=== PATIENT | female | born 1965 | race Caucasian/White ===

== ENCOUNTER 2016-11-22 15:17 | Emergency (ER) | payer MEDICAID ==
[~2016-11-22] VITALS: Ht 157.5 cm; Wt 70.0 kg
[~2016-11-22 15:17] MED LIST: NO RX MEDS
[2016-11-22 15:20] VITALS: Ht 157.5 cm; Wt 70.0 kg
[2016-11-22] MEDS ORDERED: HYDROCODONE/APAP (5/325) TAB PO STA (18:28)
[2016-11-22] MEDS ORDERED: ONDANSETRON (ODT) 4 MG TAB ODT STA (18:28)
--- NOTE | 2016-11-22 18:59 | ERD ---
ER Documentation Chief Complaint Date/Time DATE: 11/22/16 TIME: 18:56 Chief Complaint RT FLANK PAIN HPI 51-year-old female presents emergency department complaining of right lower quadrant abdominal pain since this morning. Patient rates the pain 10 out of 10. She denies any fever, nausea, vomiting, diarrhea, constipation. Denies any symptoms of dysuria. Patient states that about 10 days prior to being seen her primary care physician told her that she may have diverticulitis and have given her prescription for clarithromycin and amoxicillin. Patient states that she took her antibiotics today. She did not take anything for pain ROS All systems reviewed and are negative except as per history of present illness. Medications Home Meds Active Scripts Acetaminophen* (Tylenol*) 325 Mg Tablet, 2 TAB PO Q6 Y for PAIN AND OR ELEVATED TEMP, #20 TAB Prov:JESSICA FRASER PA-C 11/22/16 Reported Medications [None] No Conflict Check 08/29/12 [No Rx Meds] No Conflict Check 09/15/10 Allergies Allergies: Coded Allergies: No Known Allergies (Verified Allergy, Mild, 08/29/12) PMhx/Soc History of Surgery: No Anesthesia Reaction: No Hx Neurological Disorder: No Hx Respiratory Disorders: No Hx Cardiac Disorders: No Hx Psychiatric Problems: No Hx Miscellaneous Medical Probl: No Hx Alcohol Use: No Hx Substance Use: No Hx Tobacco Use: No Physical Exam Vitals Vital Signs Date Time Temp Pulse Resp B/P Pulse Ox O2 Delivery O2 Flow Rate FiO2 11/22/16 15:20 99.7 89 16 122/58 98 Physical Exam GENERAL: well-developed/well-nourished, in no apparent distress, non-toxic appearing HENT: NC/AT, moist mucous membranes EYES: Conjunctiva normal NECK: Supple, no lymphadenopathy PULM: CTA bilaterally, no rales, rhonchi, or wheezing heard CV: Normal S1S2, RRR, good capillary refill GI: Soft, non-distended, tender to palpation right lower quadrant and upper quadrant Normal bowel sounds, no masses or organomegaly felt on exam No gross peritonitis, no bruits Negative Rovsing, negative Bermudez, negative McBurney's point, Negative CVAT BACK: No masses EXT: No clubbing, cyanosis, or edema NEURO: Alert and Orientated SKIN: Intact, normal turgor PSYCH: Normal mood and mentation Result Diagram: 11/22/16 1845 11/22/16 1845 Results 24 hrs Laboratory Tests Test 11/22/16 18:45 White Blood Count 8.310^3/ul Red Blood Count 4.5010^6/ul Hemoglobin 14.0g/dl Hematocrit 40.5% Mean Corpuscular Volume 90.0fl Mean Corpuscular Hemoglobin 31.1pg Mean Corpuscular Hemoglobin Concent 34.6g/dl Red Cell Distribution Width 12.7% Platelet Count 99155^3/UL Mean Platelet Volume 10.1fl Neutrophils % 60.5% Lymphocytes % 26.4% Monocytes % 10.4% Eosinophils % 1.8% Basophils % 0.7% Nucleated Red Blood Cells % 0.0/100WBC Neutrophils # (Manual) 5.010^3/ul Lymphocytes # 2.210^3/ul Monocytes # 0.910^3/ul Eosinophils # 0.210^3/ul Basophils # 0.110^3/ul Nucleated Red Blood Cells # 0.010^3/ul Urine Color YELLOW Urine Clarity CLEAR Urine pH 5.0 Urine Specific [place] 1.025 Urine Ketones NEGATIVEmg/dL Urine Nitrite NEGATIVEmg/dL Urine Bilirubin NEGATIVEmg/dL Urine Urobilinogen NEGATIVEmg/dL Urine Leukocyte Esterase NEGATIVELeu/ul Urine Hemoglobin NEGATIVEmg/dL Urine Glucose NEGATIVEmg/dL Urine Total Protein NEGATIVEmg/dl Sodium Level 146mmol/L Potassium Level 4.1mmol/L Chloride Level 103mmol/L Carbon Dioxide Level 26mmol/L Anion Gap 21 Blood Urea Nitrogen 11mg/dl Creatinine 0.62mg/dl Glucose Level 91mg/dl Calcium Level 9.7mg/dl Total Bilirubin 0.5mg/dl Direct Bilirubin 0.00mg/dl Indirect Bilirubin 0.5mg/dl Aspartate Amino Transf (AST/SGOT) 27IU/L Alanine Aminotransferase (ALT/SGPT) 35IU/L Alkaline Phosphatase 67IU/L Total Protein 9.1g/dl Albumin 4.6g/dl Globulin 4.50g/dl Albumin/Globulin Ratio 1.02 Lipase 75U/L Current Medications Medications (Trade) Dose Ordered Sig/Larry Route PRN Reason Start Time Stop Time Status Last Admin Dose Admin Acetaminophen/ Hydrocodone Bitart ([place] (5/325)) 2 tab ONCE STAT PO 11/22/16 18:28 11/22/16 18:30 DC 11/22/16 18:56 Ondansetron HCl (Zofran Odt) 4 mg ONCE STAT ODT 11/22/16 18:28 11/22/16 18:30 DC 11/22/16 18:56 Procedures/MDM 51-year-old female presents emergency department complaining of right lower quadrant abdominal pain since this morning. Patient states that about 10 days prior to being seen her primary care physician told her that she may have diverticulitis and have given her prescription for clarithromycin and amoxicillin. Patient states that she took her antibiotics today. Blood work was drawn, Lab work was drawn. CBC did not show any evidence of leukocytosis or anemia. CMP did not show any evidence of renal, liver, or electrolyte abnormalities. Lipase was normal. UA did not show any evidence of hemoglobin or urinary tract infection. CT abd and pelvis without contrast: Likely trace free fluid in the right posterior mid to lower pelvis which may be physiologic. Otherwise no acute abnormality seen. The extreme superior dome of the liver and the extreme superior lateral segment of the left lobe of liver in left upper quadrant of the abdomen is not included in the imaging volume. Please see above. Gallbladder ultrasound did not show any cholelithiasis I have reassessed patient and she feels a lot better. I have discussed with her to follow-up with her primary care physician tomorrow. Discussed return to the ER for any worsening symptoms patient understands and agrees with plan Departure Diagnosis: Primary Impression: Abdominal pain Condition: Stable JESSICA FRASER PA-C Nov 22, 2016 18:59
[2016-11-22 19:17] LABS: BASOPHIL # 0.1 10^3/ul (0.0-0.1); BASOPHILS % 0.7 % (0.0-2.0); EOSINOPHILS # 0.2 10^3/ul (0.0-0.5); EOSINOPHILS % 1.8 % (0.0-7.0); HEMATOCRIT 40.5 % (37.0-47.0); LYMPHOCYTES # 2.2 10^3/ul (0.8-2.9); LYMPHOCYTES % 26.4 % (15.0-51.0); MEAN CORPUSCULAR HEMOGLOBIN 31.1 pg (29.0-33.0); MEAN CORPUSCULAR HGB CONC 34.6 g/dl (32.0-37.0); MEAN PLATELET VOLUME 10.1 fl (7.4-10.4); MONOCYTE # 0.9 10^3/ul (0.3-0.9); MONOCYTES % 10.4 % (0.0-11.0); NEUTROPHILS % 60.5 % (39.0-77.0); PLATELET COUNT 293 10^3/UL (140-415); RED CELL DISTRIBUTION WIDTH 12.7 % (11.5-14.5); WHITE BLOOD COUNT 8.3 10^3/ul (4.8-10.8)
[2016-11-22 19:29] LABS: ADD UMIC NO; UR ASCORBIC ACID NEGATIVE (NEGATIVE); UR BILIRUBIN (Dip) NEGATIVE (NEGATIVE); UR BLOOD (Dip) NEGATIVE (NEGATIVE); UR CLARITY CLEAR (CLEAR); UR COLOR YELLOW (YELLOW); UR GLUCOSE (Dip) NEGATIVE (NEGATIVE); UR KETONES (Dip) NEGATIVE (NEGATIVE); UR LEUKOCYTE ESTERASE (Dip) NEGATIVE Leu/ul (NEGATIVE); UR NITRITE (Dip) NEGATIVE (NEGATIVE); UR SPECIFIC GRAVITY (Dip) 1.025 (1.003-1.030); UR TOTAL PROTEIN (Dip) NEGATIVE (NEGATIVE); UR UROBILINOGEN (Dip) NEGATIVE (NEGATIVE)
[2016-11-22 19:44] LABS: ALBUMIN 4.6 g/dl (3.3-4.9); ALBUMIN/GLOBULIN RATIO 1.02; BILIRUBIN,INDIRECT 0.5 mg/dl (0-1.1); BILIRUBIN,TOTAL 0.5 mg/dl (0.2-1.3); CALCIUM 9.7 mg/dl (8.4-10.2); CREATININE 0.62 mg/dl (0.44-1.00); POTASSIUM 4.1 mmol/L (3.5-5.1); TOTAL PROTEIN 9.1 g/dl (6.1-8.1)
--- NOTE | 2016-11-22 19:58 | RADRPT ---
PROCEDURE: US Abdomen. CLINICAL INDICATION: Abdominal Pain TECHNIQUE: Multiple real-time images were acquired of the patient's abdomen and retroperitoneum ut ilizing a high resolution transducer. COMPARISON: None FINDINGS: Visualized portions of the pancreatic head and proximal body are unremarkable. The liver is normal in size and contour without evidence of intrapelvic biliary dilatation. Flow in the main portal vein is directed towards the liver. The gallbladder is normal without evidence of cholelithiasis, pericholecystic fluid or gallbladder w all thickening. The technologist reports a negative sonographic Bermudez's sign. The common bile du ct measures 3.0 mm in maximal dimension. No free fluid is identified. The right kidney is unremarkable without evidence of hydronephrosis or mass. The right kidney measu res 10.4 cm in length. IMPRESSION: Unremarkable abdominal ultrasound. RPTAT:AAJJ Physician Fabiana Date Time Electronically viewed and signed by Physician Fabiana on 11/22/2016 19:58 IVAN/
--- NOTE | 2016-11-22 21:55 | RADRPT ---
PROCEDURE: CT Abdomen and Pelvis without contrast. CLINICAL INDICATION: Abdominal pain TECHNIQUE: CT scan of the abdomen and pelvis without contrast was performed on a multidetector hig h-resolution CT scanner. The patient was scanned without intravenous contrast. Coronal and sagittal reformatted images were obtained from the axial source images. Images were reviewed on a high-resol [employer] PACS workstation. The total exam CTDI equals 9.22 mGy and the total exam DLP equals 453.59 mGy -cm. One or more the following dose reduction techniques were utilized: Automated exposure control, adjus tment of the mA and / or kV according to patient's size, or use of iterative reconstruction techniqu e. COMPARISON: Abdominal ultrasound of 11/22/2016 FINDINGS: The lung bases are clear. The extreme superior dome of the liver and the extreme superior lateral s egment of the left lobe of liver in left upper quadrant of the abdomen is not included in the imagin g volume. No abnormality of the visualized liver is seen. No abnormality seen in the gallbladder. A very small umbilical hernia containing fat only. No abnormality seen in the spleen, adrenals or kidneys. The stomach is not distended. No biliary dilatation is seen. There is mild fatty infiltr ation of the pancreas. No abdominal aortic aneurysm is seen. No abnormality seen in the bladder. No definite abnormality of the uterus or adnexal regions is seen on CT. Diverticula in ascending c olon. There is no specific evidence of acute diverticulitis seen. There is an unremarkable appendi x. No dilated small bowel loops are seen. There are is appearance of likely trace free fluid in th e right posterior mid to lower pelvis. No enlarged lymph nodes are seen in the abdomen or pelvis. No pneumoperitoneum is seen. Small scattered likely bone islands. Minimal osteoarthrosis at hips. Mild degenerative changes at sacroiliac joints. Degenerative changes in lumbar spine. IMPRESSION: Likely trace free fluid in the right posterior mid to lower pelvis which may be physiologic. Otherwi se no acute abnormality seen. The extreme superior dome of the liver and the extreme superior latera l segment of the left lobe of liver in left upper quadrant of the abdomen is not included in the javy ging volume. Please see above. RPTAT: HJES .Nelson Last MD, MD Date Time Electronically viewed and signed by .Nelson Last MD, on 11/22/2016 21:54 .S/
[2016-11-22] MEDS ORDERED: ACET325T33 PO (22:05)
== END 2016-11-22 22:15 | disposition home or self-care (01) ==
LOC: FTE 15:17
DX: R10.31 Right lower quadrant pain (principal)
CPT/HCPCS: 36415; 74176; 76705; 80053; 81003; 83690; 85025; Z7502; Z7610

== ENCOUNTER 2016-11-23 12:15 | Emergency (ER) | payer SELFPAY ==
[~2016-11-23 12:15] MED LIST changes: +ACET325T33 PO
== END 2016-11-23 12:23 | disposition left against medical advice (07) ==
LOC: E/R 12:15
DX: Z53.21 Procedure and treatment not carried out due to patient leaving prior to being seen by health care provider (principal)